=== PATIENT | female | born 1995 | race Caucasian/White ===

== ENCOUNTER → 2019-07-15 09:33 | Outpatient (CLI) | payer BC, SELFPAY | PROVIDERS: Visit Provider Physician Assistant | DX: J02.9 Acute pharyngitis, unspecified (principal) | CPT/HCPCS: 87070 ==

== ENCOUNTER → 2020-05-08 13:10 | Outpatient (CLI) | payer BC, SELFPAY ==
[2020-05-08 14:26] LABS: Hematocrit 39.8 % (36-46); Hemoglobin 13.2 g/dL (12.0-16.0); Mean Corpuscular HGB Conc 33.2 % (30-36); Mean Corpuscular Hemoglobin 28.7 PG (26-34); Mean Corpuscular Volume 86.5 fL (80-100); Platelet Count 318 X10^3/uL (150-400); Red Cell Distribution Width 13.3 % (11.6-14.8); White Blood Cell Count 6.3 X10^3/uL (4.5-11.0)
[2020-05-08 15:02] LABS: Cholesterol 150 mg/dL (140-199); Glucose 85 mg/dL (70-100); HDL Cholesterol 47 mg/dL (40-60); LDL Cholesterol Calculated 88 mg/dL (<100); Triglycerides 74 mg/dL (35-150)
[2020-05-08 15:31] LABS: TSH w/ Reflex to FT4 1.41 uIU/mL (0.47-4.68)
[2020-05-11 18:40] LABS: Almond IgE <0.10 kU/L (Class 0); Cashew Nut IgE <0.10 kU/L (Class 0); Codfish Allergy IgE < 0.10 kU/L (Class 0); Egg White IgE <0.10 kU/L (Class 0); Hazelnut IgE <0.10 kU/L (Class 0); Milk IgE <0.10 kU/L (Class 0); Peanut IgE <0.10 kU/L (Class 0); Salmon Allergy IgE < 0.10 kU/L (Class 0); Scallop Allergy IgE < 0.10 kU/L (Class 0); Sesame seed Allergy IgE < 0.10 kU/L (Class 0); Shrimp IgE 0.27 kU/L (Class 0/I); Soybean IgE <0.10 kU/L (Class 0); Tuna Allergy IgE < 0.10 kU/L (Class 0); Walnut IgE <0.10 kU/L (Class 0); Wheat Allergy IgE < 0.10 kU/L (Class 0)
== END ==
PROVIDERS: PCP Registered Nurse Diabetes Educator; Referring Provider Registered Nurse Diabetes Educator; Visit Provider Registered Nurse Diabetes Educator
DX: Z00.00 Encounter for general adult medical examination without abnormal findings (principal); E66.9 Obesity, unspecified; R14.0 Abdominal distension (gaseous)
CPT/HCPCS: 36415; 80061; 82947; 84443; 85027; 86003

== ENCOUNTER → 2024-03-16 16:39 | Outpatient (CLI) | payer OTHER, SELFPAY ==
--- NOTE | 2024-03-16 16:40 | DI.US.S_ITS ---
PROCEDURE: US PELVIC COMPLETE INDICATIONS: Irregular heavy bleeding TECHNIQUE: Real-time scanning was performed of the pelvic organs, with image documentation. Additional endovaginal scanning was necessary due to incomplete visualization of the adnexal and endometrial structures by transabdominal scanning. COMPARISON: None. FINDINGS: Uterus: Uterus is anteverted and normal in size at 6.8 x 4.8 x 2.9 cm. The myometrium is homogeneous. The endometrium measures 11 mm combined thickness. No uterine fibroids. Ovaries: The right ovary measures 2.2 x 2.3 x 1.8 cm, with a calculated ovarian volume of 4.8 cc. The left ovary measures 2.6 x 1.9 x 1.5 cm, with a calculated ovarian volume of 3.9 cc. The ovaries have a normal sonographic appearance. Less than 12 follicles can be seen in each ovary. No adnexal masses are seen. Other: No pathologic free abdominal or pelvic fluid. IMPRESSION: No cause for patient's symptoms is identified. Normal appearance of the uterus and ovaries. We strive to produce accurate, complete, and clear reports of imaging services. To assist us in improving patient care, this report was composed using standard report templates and voice recognition software. Therefore, it may contain abnormal punctuation, insertions and/or omissions. Occasional wrong-word or sound-alike substitutions may occur. Though we review the report and make efforts to correct it, we do recommend that the report be read carefully in proper context to recognize any text inaccuracies. Dictated by: Mason Arriaga M.D. on 03/17/2024 at 9:41 Approved by: Mason Arriaga M.D. on 03/17/2024 at 9:45
== END ==
PROVIDERS: PCP Family Medicine; Referring Provider Obstetrics & Gynecology; Visit Provider Obstetrics & Gynecology
DX: N92.6 Irregular menstruation, unspecified (principal)
CPT/HCPCS: 76830; 76856

== ENCOUNTER → 2024-06-23 16:24 | Outpatient (CLI) | payer OTHER, SELFPAY ==
[2024-06-23 18:30] LABS: Free T4, Direct Thyroxine 0.97 ng/dL (0.78-2.19)
[2024-06-23 18:44] LABS: Thyroid Stimulating Hormone 1.13 uIU/mL (0.47-4.68)
[2024-06-23 18:47] LABS: Hemoglobin A1C% w Est Avg Glu 5.8 % (4.0-6.0)
== END ==
PROVIDERS: PCP Family Medicine; Referring Provider Obstetrics & Gynecology; Visit Provider Obstetrics & Gynecology
DX: N92.6 Irregular menstruation, unspecified (principal)
CPT/HCPCS: 36415; 83036; 84439; 84443